=== PATIENT | male | born 1995 | race Caucasian/White ===

== ENCOUNTER → 2016-11-11 | Outpatient (CLI) | payer OTHER ==
--- NOTE | 2016-11-11 10:32 | REP ---
MAXILLOFACIAL CT WITHOUT CONTRAST: HISTORY: Chronic sinusitis. Minimal mucosal thickening is present in the maxillary sinuses. A retention cyst or polyp is present in the left maxillary sinus. The remaining sinuses are clear. The osteomeatal units are patent. The middle and inferior nasal turbinates are partially paradoxical. 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 The nasal septum is midline. A spur is present arising from the right side of the nasal septum. The cribriform plate, medial balir of the orbits and optic canals are intact. There is aeration of the right anterior clinoid process. The carotid canals form a segment of the posterolateral blair of the sphenoid sinus. IMPRESSION: 1. Sinus mucosal thickening as described above. 2. Left maxillary sinus retention cyst or polyp. Signed by Villa Vora MD 11/11/2016 10:34 A
== END ==
LOC: M RAD 09:50
PROVIDERS: ATTEND Physician Assistant
DX: J32.9 Chronic sinusitis, unspecified (principal); J33.8 Other polyp of sinus

== ENCOUNTER 2017-01-26 06:05 | Day surgery (SDC) | payer OTHER ==
[~2017-01-26] VITALS: Ht 188 cm; Wt 86.2 kg
[2017-01-26] MEDS ORDERED: LR 1,000 ML IV ONE (06:30)
[2017-01-26] MEDS ORDERED: fentaNYL 100 MCG/2 ML INJECTION (J3010) As Ordered ONE (07:10)
[2017-01-26] MEDS ORDERED: MIDAZOLAM INJ 2 MG/2 ML VIAL (J2250) As Ordered ONE (07:10)
[2017-01-26] MEDS ORDERED: EPINEPHrine INJ 1 MG/ML 1ML AMP As Ordered ONE (07:13)
[2017-01-26] MEDS ORDERED: LIDOCAINE W/EPINEPHRINE 1% 20ML VIAL As Ordered ONE (07:13)
[2017-01-26] MEDS ORDERED: METHYLENE BLUE 0.5% (5MG/ML) 10 ML AMP (PROVAYBLUE)(Q9968 PER 1MG) As Ordered ONE (07:13)
[2017-01-26] MEDS ORDERED: EPINEPHrine 1MG/ML INJ 30ML MD-VIAL As Ordered ONE (07:17)
[2017-01-26] MEDS ORDERED: PROPOFOL 200 MG/20 ML VIAL As Ordered ONE (07:56)
[2017-01-26] MEDS ORDERED: LIDOCAINE 2% INJ 100 MG/5 ML SDV (FOR ANES.) As Ordered ONE (07:56)
[2017-01-26] MEDS ORDERED: ROCURONIUM BROMIDE 50 MG/5 ML VIAL/SYRINGE As Ordered ONE (07:57)
[2017-01-26] MEDS ORDERED: dexameTHASONE 4 MG/ML 1ML VIAL (J1100) As Ordered ONE (07:57)
[2017-01-26] MEDS ORDERED: ONDANSETRON 4MG/2ML VIAL (J2405) As Ordered ONE (07:57)
[2017-01-26] MEDS ORDERED: ACETAMINOPH W/CODEINE #3 TAB UD PO PRN (08:45)
[2017-01-26] MEDS ORDERED: NORCO, ANEXSIA 5/325MG TABLET (HYDROcodone/ACETAMINOPHEN) PO PRN (08:45)
[2017-01-26] MEDS ORDERED: LR 1,000 ML IV SCH ×2 (08:45)
[2017-01-26] MEDS ORDERED: ONDANSETRON 4MG/2ML VIAL (J2405) IV PRN (08:45)
[2017-01-26] MEDS ORDERED: fentaNYL 100 MCG/2 ML INJECTION (J3010) IV PRN (08:45)
--- NOTE | 2017-01-26 09:29 | RO ---
DATE OF PROCEDURE: 01/26/2017 PREOPERATIVE DIAGNOSIS: Chronic rhinitis. POSTOPERATIVE DIAGNOSIS: Chronic rhinitis. OPERATIVE PROCEDURE: Bilateral turbinectomy. SURGEON: Dr. Modesto Zavala [employer]: ANESTHESIA: Under general anesthesia with the patient intubated, the patient was draped in the usual manner. I used pledgets of adrenaline 1:1000 and infiltrated with lidocaine and epinephrine. I started on the right side. Incision made anterior over the inferior turbinate. I elevated mucosa anterior/posterior and medial/lateral. I then used a microdebrider to remove a portion of the andrae. I then took a portion of the andrae with forceps. Once this was done, everything looked good. The same procedure was performed on both sides. I put a stitch to reapproximate mucosa anteriorly of #4-0 Vicryl. Less than 20 mL of estimated blood loss. The patient tolerated the procedure well, was extubated and transferred to the recovery room in excellent condition.
[2017-01-26 11:00] VITALS: BP 143/75
== END 2017-01-26 11:23 | disposition home or self-care (01) ==
LOC: M SDC 06:05
PROVIDERS: ATTEND Otolaryngology
DX: J31.0 Chronic rhinitis (principal); Z88.1 Allergy status to other antibiotic agents
CPT/HCPCS: 30130; J1100; J2250; J2405; J3010; Q9968